=== PATIENT | female | born 1985 | race Caucasian/White ===

== ENCOUNTER 2025-09-24 18:15 | Emergency (ER) | payer OTHER, MEDICAID ==
[~2025-09-24] VITALS: Ht 165.1 cm; Wt 75.0 kg
[2025-09-24 18:20] VITALS: TEMP 36.8; O2SAT 100
[2025-09-24] MEDS: SODIUM CHLORIDE 0.9% 1,000 ML IV ONE ×2 (18:42→19:11)
[2025-09-24] MEDS: DILTIAZEM HCL 5MG/ML 5ML VIAL IV ONE (18:44)
[2025-09-24 18:53] LABS: BASOPHILS % 0.8 % (0.0-2.0); EOSINOPHILS % 2.9 % (0.0-5.0); HEMATOCRIT. 48.0 % (36.0-48.0); HEMOGLOBIN. 16.3 g/dL (12.0-16.0); LYMPHOCYTES % 34.4 % (20.0-50.0); MEAN PLATELET VOLUME 8.5 fl (7.4-10.4); MONOCYTES % 10.7 % (2.0-8.0); NEUTROPHILS % 51.2 % (40.0-76.0); PLATELET 245 x1000/uL (130-400); RED BLOOD CELL COUNT 4.78 mill/uL (4.2-5.4); RED CELL DISTRIBUTION WIDTH 12.9 % (11.6-14.6)
[2025-09-24 19:07] LABS: CREATININE 0.7 mg/dL (0.6-1.0)
[2025-09-24 19:08] LABS: UREA NITROGEN BLOOD 7 mg/dL (9-23)
[2025-09-24 19:09] LABS: ASPARTATE AMINOTRANSFERASE 104 IU/L (<34); TROPONIN I HIGH SENSITIVITY 6 ng/L (3.0-34)
[2025-09-24 19:10] LABS: BILIRUBIN DIRECT < 0.1 mg/dL (<=3.0); BILIRUBIN TOTAL 0.4 mg/dL (0.1-1.0); PROTEIN TOTAL 7.9 g/dL (6.0-8.3)
[2025-09-24 19:13] LABS: T4 FREE 1.96 ng/dL (0.89-1.76)
[2025-09-24 20:20] VITALS: BP 146/95; PULSE 106; RESP 18; O2SAT 99
== END 2025-09-24 20:23 | disposition left against medical advice (07) ==
LOC: ER 18:15 → CMPBEDREQ 09-25 07:46
DX: I48.20 Chronic atrial fibrillation, unspecified (principal); E05.90 Thyrotoxicosis, unspecified without thyrotoxic crisis or storm; R06.02 Shortness of breath; R10.20 Pelvic and perineal pain unspecified side
CPT/HCPCS: 99285; 96374; 71045; 96361; 80076; 80048; 84702; 83880; 84439; 83690; 83735; 84443; 85025; 84484; 36415; 93005; J3490; J7030